=== PATIENT | male | born 1935 | race Caucasian/White ===

== ENCOUNTER 2017-05-31 09:00 | Inpatient (IN) | payer MEDICARE, BC ==
[~2017-05-31] VITALS: Ht 177.8 cm; Wt 83.4 kg
--- NOTE | ~2017-05-31 | OR ---
PATIENT'S NAME: CRISELDA MERCEDES [facility] AGE: 82 Y [address] ROOM: [place] [address] LOCATION: [facility] ADMIT DATE: 06/07/2017 OR/Procedure Report DISCHARGE DATE: 06/08/2017 FAMILY PHYSICIAN: Richie James MD ATTENDING PHYSICIAN: Chris Arciniega SURGEON: Chris Arciniega MD MARINE SCIENTIST: 1. PRATIK Metzger. 2. Devin Sifuentes CST/PROFESSIONAL SERVICES MANAGER. DATE OF PROCEDURE: 06/07/2017 PREOP/POSTOP DX CORRECTED PER DR. 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 POSTOPERATIVE DIAGNOSES: 1. 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 2. Biceps tendinosis. 3. Biceps tendinitis. PROCEDURES PERFORMED: 1. Right total shoulder arthroplasty. 2. Right shoulder biceps tenodesis. ANESTHESIA: General endotracheal anesthesia plus subcutaneous and periarticular local anesthesia (Marcaine, ropivacaine, and epinephrine). DRAINS: None. SPECIMENS: None. COMPLICATIONS: None. ESTIMATED BLOOD LOSS: Approximately 100 mL. IMPLANTS: [employer] 2.2 mm SureLock suture anchor x1. [employer] standard porous plasma uncemented convertible glenoid baseplate with 6.5 mm central locking screw x1 and 4.75 mm peripheral cortical locking screws x2. E1 Biomet convertible glenoid polyethylene liner. Biomet comprehensive shoulder system size 16 x 83 mm porous plasma uncemented humeral component with standard neck taper adapter and 50 mm x 21 mm x 57 mm radius of curvature humeral head. INDICATION FOR PROCEDURE: Mr. Mercedes is an 82-year-old male presenting with severe right shoulder glenohumeral degenerative joint disease and associated severely compromised activities of daily living. He has decided to proceed [facility] AGE: 82 Y [address] ROOM: [place] [address] LOCATION: [facility] ADMIT DATE: 06/07/2017 OR/Procedure Report DISCHARGE DATE: 06/08/2017 FAMILY PHYSICIAN: Richie James MD ATTENDING PHYSICIAN: Chris Arciniega with right total shoulder arthroplasty after having been thoroughly counseled regarding risks, benefits, and limitations thereof. We have specifically reviewed risks and implications of infection, neurovascular complications, stiffness, instability, wear, loosening, and potential need for revision. Informed consent granted. DESCRIPTION OF PROCEDURE: The patient placed in a modified beachchair position after administration of general endotracheal anesthesia and prophylactic antibiotics. The right shoulder and right upper extremity were prepped and draped with vigilant sterile technique. Examination under anesthesia demonstrated no active skin lesions, masses, or muscle atrophy. There was no instability. Passive forward elevation was 160 degrees. Passive external rotation was 45 degrees. The right shoulder was approached through a standard deltopectoral incision. The cephalic vein was identified and was mobilized laterally with the deltoid and vigilantly protected throughout the entire case. The outer surface of the rotator cuff was pristine. There was a moderate amount of fluid within the biceps tendon sheath. The biceps tendon sheath was divided vertically. The intra-articular portion of the biceps tendon was markedly flattened. The biceps tendon was divided at the proximal margin of the intertubercular groove and tagged for later tenodesis. The biceps was tenodesed to the midportion of the intertubercular groove immediately prior to inserting the final humeral component using all four strands of suture from the [place] anchor. The subscapularis tendon and anterior capsule were divided vertically 5 mm medial to their respective insertions and tagged with #1 Ethibond suture for later repair. There was a large effusion consisting of benign-appearing translucent synovial fluid. There was full-thickness loss of articular cartilage involving 75% of the humeral head and the posterior two-thirds of the glenoid. There was a 1 cm osteophyte at the inferior aspect of the humeral head. There was a small osteophyte at the anterior margin of the humeral head which was impinging on the biceps tendon. The osteophyte was removed. The humeral head resection was performed at the anatomic neck with an oscillating saw in approximately 30 degrees of retroversion. The humeral canal was reamed sequentially up to a size 16 with tapered conical reamers. The size 16 reamer obtained excellent contact with the endosteal cortex of the proximal humerus. The humerus was subsequently broached up to a size 16. The size 16 broach obtained excellent axial and rotational stability. Circumferential glenoid exposure was obtained. There was extensive degenerative tearing of the remnant of the glenoid labrum. Glenoid labral remnants and the intra-articular portion of the biceps tendon were excised. PATIENT'S NAME: CRISELDA MERCEDES [facility] AGE: 82 Y [address] ROOM: [address] [address] LOCATION: [facility] ADMIT DATE: 06/07/2017 OR/Procedure Report DISCHARGE DATE: 06/08/2017 FAMILY PHYSICIAN: Richie James MD ATTENDING PHYSICIAN: Chris Arciniega The glenoid face was reamed over a centrally placed guidewire, and the uncemented glenoid baseplate was impacted into position and fully seated. An excellent press-fit was obtained. Glenoid fixation was augmented with a central 6.5 mm locking screw and 2 supplemental peripheral locking screws (all 3 of which obtained excellent axial and rotational stability). The final humeral polyethylene insert was impacted into position and visually and digitally confirmed to be solidly and fully seated. The trial humeral component was inserted. Trial reductions demonstrated appropriate humeral height, soft-tissue tension, and stability. All trial components were removed. The biceps tenodesis was completed. The entire joint space and entire incision were thoroughly irrigated with bacteriostatic pulsatile saline lavage at this point as well as several times throughout the case. The final humeral component was inserted and obtained excellent axial and rotational stability. The trunnion was thoroughly cleansed and dried prior to impacting the humeral head into position. A final reduction was performed. Once again, there was appropriate humeral height, range of motion, and stability. The subscapularis was repaired with multiple [id number] interrupted #2 Orthocord sutures. Subcutaneous tissues were re-irrigated. Local anesthetic was injected subcutaneously as well as periarticularly. Subcutaneous tissues were reapproximated with simple deep interrupted 0 Vicryl. The skin was closed with superficial buried interrupted 2-0 Vicryl, followed by a running subcuticular 3-0 Monocryl suture, followed by Dermabond, followed by Steri-Strips with benzoin. A shoulder immobilizer was placed, and the patient was extubated and transported to the postanesthesia care unit in stable, comfortable condition. It should be noted that the physician's web production assistant played an active, integral role throughout this entire operation. By providing expert retraction, they greatly facilitated and expedited safe and effective exposure of the proximal humerus and glenoid for preparation and implantation of the components. They were also actively involved in patient's positioning, prepping and draping, as PATIENT'S NAME: CRISELDA MERCEDES [facility] AGE: 82 Y [address] ROOM: [address] [address] LOCATION: [facility] ADMIT DATE: 06/07/2017 OR/Procedure Report DISCHARGE DATE: 06/08/2017 FAMILY PHYSICIAN: Richie James MD ATTENDING PHYSICIAN: Chris Arciniega well as wound closure. MD JOSE SHELLEY/rbent /[id number] PREOP/POSTOP DX CORRECTED PER DR. ARCINIEGA / 06-28-2017 / KLD d: 06/07/17 1821 t: 06/28/17 1210, OPERATIVE SUMMARY
[2017-05-31] MEDS ORDERED: ZOCOR40 MG PO (11:46)
[2017-05-31] MEDS ORDERED: OCUVITE SOFTGE1 EACH PO (11:47)
[2017-05-31] MEDS ORDERED: FLOMAX0.4 MG PO (11:47)
[2017-05-31] MEDS ORDERED: FISH OIL 1,4001 EACH PO (11:49)
--- NOTE | 2017-06-07 18:33 | NUR ---
Significant Event: ALERT & ORIENTED. VSS, AFEBRILE, ON 3L O2. ENCOURAGED IS. ETCO2 MONITORING. LAST GAVE DILAUDID 2MG PO AT 1730. R)FINGER NUMBNESS MUCH IMPROVED PER PT. ICE AND IMMOBILIZER, MEPILEX CDI. LR AT 80 ML/HR TO L)WRIST. Follow up: TITRATE O2
--- NOTE | 2017-06-08 03:59 | NUR ---
Significant Event: Alert/oriented x3. spent the night. VSS on room air. CSM WNL. Sling on at all times. 1 void per urinal - 350 mls. No BM, last 06/06. Dressing C/D/I. Ice to shoulder. Saline lock left wrist. Scheduled Toradol at 1952, 015; Dilaudid 2 mg at 1953. Possible dismissal today. Follow up:
[2017-06-08] MEDS ORDERED: COLACE100 MG PO (14:18)
[2017-06-08] MEDS ORDERED: DILAUDID 2MG(HYD2 MG PO (14:20)
--- NOTE | 2017-06-08 14:30 | NUR ---
Introduced self/role to patient and his family. Denied any barriers to going home or at home. Has DME needed and family supports.
--- NOTE | 2017-06-08 15:03 | NUR ---
Pt discharged to go home with family at 1445. He is alert and oriented. Has been up and about on own and tolerates well. States understands exercises taught by PT for Rt shoulder. Mepilex dressing shoulder dry and intact. Pt CSM WNL Rt hand. Strong radial pulse. Moves fingers and wrist well. Denies numbness or tingling. Voiding normal for him and eating well and po fluids well. Pain rated 4-5 and dilaudid po given prior to discharge. Pt uses IS at 1500. Pt has had ice to shoulder on and off. Pt discharged in stable condition. Has belongings. To door per wheelchair with airline transport pilot.
== END 2017-06-08 13:45 | disposition disaster alternative care site (69) | DRG 483 ==
LOC: G3N 06-07 09:22
PROVIDERS: ADMIT Orthopaedic Surgery
PROC: 0LS30ZZ Reposition Right Upper Arm Tendon, Open Approach (ICD-10-PCS; principal; 2017-06-07)
PROC: 0RRJ0JZ Replacement of Right Shoulder Joint with Synthetic Substitute, Open Approach (ICD-10-PCS; principal; 2017-06-07)
DX: M19.011 Primary osteoarthritis, right shoulder (principal); I35.0 Nonrheumatic aortic (valve) stenosis; I10 Essential (primary) hypertension; K21.9 Gastro-esophageal reflux disease without esophagitis; E78.5 Hyperlipidemia, unspecified; Z85.46 Personal history of malignant neoplasm of prostate; Z79.899 Other long term (current) drug therapy; M75.21 Bicipital tendinitis, right shoulder
CPT/HCPCS: C1713; C1776; J0131; J0690; J1100; J1170; J1885; J2001; J2250; J2405; J2795; J3010; J7120